=== PATIENT | female | born 1970 | race Caucasian/White ===

== ENCOUNTER → 2016-07-08 | Outpatient (CLI) | payer BC ==
--- NOTE | 2016-07-08 11:41 | EKG ---
[address] [place] [address] [place] [address] Measurements Intervals [place] Rate: 83 P: 58 CT: 130 QRS: -5 QRSD: 92 T: 6 QT: 391 QTc: 430 Interpretive Statements SINUS RHYTHM INFERIOR MYOCARDIAL INFARCTION PROBABLY OLD Compared to ECG 06/16/2015 13:29:14 Myocardial infarct finding now present T-wave abnormality no longer present Electronically Signed On 07-08-16 15:44:02 [facility] by Cullen Trotter [email or web address]
[2016-07-08 12:20] LABS: HEMATOCRIT 42.8 % (37.0-47.0); HEMOGLOBIN 13.8 g/dL (12.0-16.0); MEAN CORPUSCULAR HGB CONC 32.2 g/dL (33-37); MEAN PLATELET VOLUME 9.7 FL (7.4-12.2); RDW COEFFICIENT OF VARIATION 12.6 % (11.5-14.5); WHITE BLOOD COUNT 7.32 10^3/uL (4.8-10.8)
[2016-07-08 12:45] LABS: ASPARTATE AMINO TRANSFERASE 43 IU/L (8-39); BILIRUBIN,TOTAL 0.8 mg/dL (0.3-1.2); BLOOD UREA NITROGEN 18 mg/dL (7-22); CHLORIDE 102 meq/L (98-112); CREATININE 0.8 mg/dL (0.50-1.20); EST GLOMERULAR FILTRATION > 60 (>60 ml/min/1.73m(2)); GLUCOSE 79 mg/dL (78-110); POTASSIUM 3.4 meq/L (3.8-5.2); SODIUM 140 meq/L (135-145); TOTAL PROTEIN 7.7 g/dL (6.1-8.0)
[2016-07-08 13:11] LABS: PLATELET MORPHOLOGY COMMENT NORMAL MORPHOLOGY (NORM)
[2016-07-08 13:13] LABS: BAND NEUTROPHILS % 0 % (0-10); BASOPHILS % (MANUAL) 1 % (0-1); EOSINOPHILS % (MANUAL) 4 % (0-8); LYMPHOCYTES % (MANUAL) 38 % (10-50); METAMYELOCYTES % 0 %; MONOCYTES % (MANUAL) 4 % (0-12); MYELOCYTES % 0 %; NEUTROPHILS % (MANUAL) 53 % (50-80); PROMYELOCYTES % 0 %
--- NOTE | 2016-07-08 16:05 | DI ---
PA /LATERAL CHEST X-RAY, 07/08/2016 11:32 AM : Clinical History: Preoperative evaluation. Previous Exam: November 15, 2015 There is no acute soft tissue or bony abnormality. Heart size is normal. Lungs are clear. Mediastinal structures are normal. There are no pulmonary nodules. IMPRESSION: Normal chest x-ray.
== END ==
LOC: LAB 11:25
PROVIDERS: ATTEND Orthopaedic Surgery
DX: Z01.812 Encounter for preprocedural laboratory examination (principal); Z01.810 Encounter for preprocedural cardiovascular examination; Z01.818 Encounter for other preprocedural examination
CPT/HCPCS: 36415; 71020; 80053; 85007; 85610; 85730; 87641; 93005; 93010

== ENCOUNTER → 2017-02-23 | Outpatient (CLI) | payer BC ==
[2017-02-23 09:01] LABS: BASOPHILS # (AUTO) 0.09 10*3/UL; BASOPHILS % (AUTO) 0.9 % (0-1); EOSINOPHILS % (AUTO) 2.1 % (0-8); HEMATOCRIT 43.3 % (37.0-47.0); HEMOGLOBIN 14.3 g/dL (12.0-16.0); LYMPHOCYTES # (AUTO) 2.22 10*3/uL; MEAN CORPUSCULAR HEMOGLOBIN 30.8 PG (27-31); MEAN CORPUSCULAR VOLUME 93.1 FL (81-99); MEAN PLATELET VOLUME 10.2 FL (7.4-12.2); MONOCYTES # (AUTO) 0.71 10*3/UL (0.3-0.8); MONOCYTES % (AUTO) 7.4 % (5-15); NEUTROPHILS # (AUTO) 6.36 10*3/UL; NEUTROPHILS % (AUTO) 66.3 % (50-80); RED BLOOD COUNT 4.65 10^6/uL (4.20-5.40)
[2017-02-23 09:05] LABS: PLATELET MORPHOLOGY COMMENT NORMAL MORPHOLOGY (NORM); RBC MORPHOLOGY COMMENT NORMAL MORPHOLOGY (NORM); WBC MORPHOLOGY COMMENT NORMAL MORPHOLOGY (NORM)
[2017-02-23 09:07] LABS: BLOOD UREA NITROGEN 18 mg/dL (7-22); CALCIUM 9.8 mg/dL (8.7-10.7); EST GLOMERULAR FILTRATION > 60 (>60 ml/min/1.73m(2)); HDL CHOLESTEROL 62 mg/dL (40-150); SERUM ALBUMIN 4.1 g/dL (3.5-4.8); SERUM CHOLESTEROL 186 mg/dL (120-200)
== END ==
LOC: LAB 08:14
PROVIDERS: ATTEND Physician Assistant Medical
DX: Z00.00 Encounter for general adult medical examination without abnormal findings (principal)
CPT/HCPCS: 36415; 80053; 80061; 84443; 85025